=== PATIENT | female | born 1970 | race Hispanic/Latino ===

== ENCOUNTER → 2025-02-06 | Day surgery (SDC) | payer OTHER ==
[~2025-02-06] MED LIST: GLUCAGON FOR INJ 1 MG VIAL ONE; LIDOCAINE HCL 2% LOCAL INJ 5 ML SDV VIAL INJ ONE; METRONIDAZOLE500 MG PO; MIDAZOLAM HCL 2 MG/2 ML VIAL ONE; PANTOPRAZOLE SO40 MG PO; PROPOFOL IV EMULSION 50 ML IV ONE; TETRACYCLINE H500 MG PO; VITAMIN D PO; VITAMIN E400 UNI1 PO
[2025-02-06] MEDS: LACTATED RINGER'S 1,000 ML ONE (15:41)
[2025-02-06 18:00] VITALS: TEMP 97.4
[2025-02-06 18:15] VITALS: BP 112/74; PULSE 87; RESP 16; O2SAT 97
== END | disposition home or self-care (01) ==
LOC: OR 15:04
PROVIDERS: ATTEND Internal Medicine Gastroenterology
DX: K59.00 Constipation, unspecified (principal); K64.8 Other hemorrhoids; K21.9 Gastro-esophageal reflux disease without esophagitis; K29.50 Unspecified chronic gastritis without bleeding; K44.9 Diaphragmatic hernia without obstruction or gangrene; Z80.0 Family history of malignant neoplasm of digestive organs; Z79.2 Long term (current) use of antibiotics; Z68.31 Body mass index [BMI] 31.0-31.9, adult; Z01.810 Encounter for preprocedural cardiovascular examination
CPT/HCPCS: 43239; 45378; 93005; J1610; J2003; J2250; J2704; J7121